=== PATIENT | male | born 1960 | race Two or more races ===

== ENCOUNTER 2023-07-25 14:04 | Emergency (ER) | payer OTHER ==
[~2023-07-25] VITALS: Ht 177.8 cm; Wt 85.3 kg
[2023-07-25] MEDS ORDERED: AVODART0.5 MG PO (14:10)
[2023-07-25] MEDS ORDERED: TAMS0.4C PO (14:10)
[2023-07-25] MEDS ORDERED: NASAL MIST126 ML NASAL (17:27)
[2023-07-25] MEDS ORDERED: FLONASE16 GM NASAL (17:27)
== END 2023-07-25 17:52 | disposition home or self-care (01) ==
LOC: ER 14:04
DX: R09.81 Nasal congestion (principal); I10 Essential (primary) hypertension; E78.49 Other hyperlipidemia